=== PATIENT | male | born 1955 | race Caucasian/White ===

== ENCOUNTER 2025-07-30 10:33 | Outpatient (CLI) | payer MEDICARE, OTHER ==
[~2025-07-30 10:33] MED LIST: BREO INHALER INH; MULT-785 PO
[2025-07-30 11:04] LABS: MEAN PLATELET VOLUME 8.3 FL (7.4-10.4); RED CELL DISTRIBUTION WIDTH 14.3 % (11.5-14.5)
[2025-07-30 11:14] LABS: % IRON SATURATION 47 % (11-46)
[2025-07-30 11:27] LABS: CREATININE 1.39 MG/DL (0.60-1.10); TOTAL CARBON DIOXIDE 32.5 MMOL/L (24-32); eGFR 51 ML/MIN
== END 2025-07-30 23:59 | disposition home or self-care (01) ==
LOC: LAB 10:33
PROVIDERS: ATTEND Nurse Practitioner Family
DX: E29.1 Testicular hypofunction (principal); D75.1 Secondary polycythemia
CPT/HCPCS: 36415; 80053; 82728; 83540; 83550; 84466; 85025